=== PATIENT | male | born 1950 | race Caucasian/White ===

== ENCOUNTER → 2023-02-07 | Outpatient (CLI) | payer MEDICARE ==
[~2023-02-07] VITALS: Ht 177.8 cm; Wt 58.5 kg
[~2023-02-07] MED LIST: ACET325S20 PR; ALBU18HF12 IH; APIX5TAB PO; ATOR40TA28 PO; BENZ-227 PO; BUME1TAB34 PO; CHOL25TA4 PO; CYAN100022 SL; FAMO20 PO; GUAIF10 PO; IBUP-45 PO; LISI-893 PO; METO50TA9 PO; OS500 PO; SPIR-37 PO; TAMS-13 PO
[2023-02-07 11:58] VITALS: BP 137/76; PULSE 88; RESP 26; TEMP 97.9; O2SAT 97
== END | disposition home or self-care (01) ==
LOC: SRCNTR 11:11
PROVIDERS: ATTEND Internal Medicine Cardiovascular Disease
DX: I11.0 Hypertensive heart disease with heart failure (principal); I50.22 Chronic systolic (congestive) heart failure; J44.9 Chronic obstructive pulmonary disease, unspecified; F99 Mental disorder, not otherwise specified; Z71.51 Drug abuse counseling and surveillance of drug abuser; Z95.810 Presence of automatic (implantable) cardiac defibrillator; Z86.711 Personal history of pulmonary embolism
CPT/HCPCS: 93005; G0463